=== PATIENT | female | born 1980 | race Hispanic/Latino ===

== ENCOUNTER 2018-06-18 09:04 | Day surgery (SDC) | payer OTHER ==
[2018-06-18] MEDS ORDERED: Succinylcholine Chloride 20 mg/ml Syr (5 ml) IV ONE (09:53)
[2018-06-18] MEDS ORDERED: Lidocaine 4% (Laryng-O-Jet) Kit MM ONE (09:53)
[2018-06-18] MEDS ORDERED: Rocuronium 10 mg/ml (5 ml) ONE (09:53)
[2018-06-18] MEDS ORDERED: Propofol 10 mg/ml Inj (20 ML) ONE (09:53)
[2018-06-18] MEDS ORDERED: Dexamethasone 4 mg/1 ml ONE (09:56)
[2018-06-18] MEDS ORDERED: Phenylephrine 10 mg/ml Inj ONE (09:59)
[2018-06-18] MEDS ORDERED: Lactated Ringer's 1,000 ML IV ONE ×5 (10:10→15:30)
[2018-06-18] MEDS ORDERED: Chlorhexidine Gluconate 2OZ GEL TP ONE (10:16)
[2018-06-18] MEDS ORDERED: Silver Nitrate Topical - Stick ONE (10:16)
[2018-06-18 10:25] LABS: BASO # 0.1 K/uL (0.0-0.2); EOS # 0.3 K/uL (0.0-0.7); HEMOGLOBIN 14.3 g/dL (12.0-16.0); LYMPH # 2.5 K/uL (1.0-4.3); LYMPH % 39.8 % (20.0-40.0); MEAN CELL VOLUME 94.1 fl (81.0-99.0); MEAN CORPUSCULAR HEMOGLOBIN 32.2 pg (27.0-31.0); MEAN CORPUSCULAR HGB CONC 34.3 g/dL (33.0-37.0); MEAN PLATELET VOLUME 8.8 fl (7.2-11.7); MONO # 0.4 K/uL (0.0-0.8); MONO % 6.8 % (0.0-10.0); NEUT # 3.1 K/uL (1.8-7.0); NEUT % 48.4 % (50.0-75.0); RBC 4.43 Mil/uL (3.80-5.20); RED CELL DISTRIBUTION WIDTH 12.6 % (11.5-14.5); WHITE BLOOD COUNT 6.4 K/uL (4.8-10.8)
[2018-06-18] MEDS ORDERED: Midazolam 2 MG/2 ML VIAL ONE (12:06)
[2018-06-18] MEDS: Bupivacaine 0.5% Inj(30mL) ONE ×2 (12:29→12:45)
[2018-06-18] MEDS ORDERED: Neostigmine 1:1000 (1 mg/ml) Inj ONE (13:23)
[2018-06-18] MEDS ORDERED: Lactated Ringer's 500 ML IV ONE (14:09)
[2018-06-18] MEDS ORDERED: Lactated Ringer's 1,000 ML IV SCH (14:15)
[2018-06-18] MEDS: HYDROmorphone 0.5 mg/0.5 ml ISec IVP PRN ×2 (14:40→14:55)
[2018-06-18] MEDS ORDERED: Oxycodone/Acetaminophen 5/325 mg Tab PO PRN (15:25)
[2018-06-18 17:17] VITALS: RESP 18
[2018-06-18 17:53] VITALS: O2SAT 98
[2018-06-18 18:57] VITALS: BP 116/71; PULSE 98; TEMP 97.7
--- NOTE | 2018-06-19 07:12 | OP ---
PROCEDURE DATE: 06/18/2018 SURGEON: Mason Kidd MD FINANCIAL COACH: Leonel Landeros MD ANESTHESIOLOGIST: Fahad Clark MD TYPE OF ANESTHESIA: General endotracheal. PREOPERATIVE DIAGNOSES: 1. Incapacitating pelvic pain. 2. Incapacitating abdominal pain. 3. Abnormal uterine bleeding. 4. History of pelvic endometriosis. 5. History of previously failed medical and surgical therapy. 6. Gastrointestinal and genitourinary symptoms. 7. Rule out interstitial cystitis. POSTOPERATIVE DIAGNOSES: 1. Incapacitating pelvic pain. 2. Incapacitating abdominal pain. 3. Abnormal uterine bleeding. 4. History of pelvic endometriosis. 5. History of previously failed medical and surgical therapy. 6. History of severe endometriosis and pelvic adhesions. 7. Gastrointestinal and genitourinary symptoms. PROCEDURES PERFORMED: 1. Exam under anesthesia. 2. Video assisted hysteroscopy. 3. Cystoscopy. 4. Bilateral ureteral catheterization and injection of IC-Green dye. 5. Robotic da Ghada operative laparoscopy. 6. Treatment of endometriosis. 7. Excision of endometriosis. 8. Bilateral ureterolysis. COMPLICATIONS: None. SAMPLES SENT: multiple sent to patholoigy INDICATION FOR THE PROCEDURE AND CONSENT: The patient had a long history of pelvic pain, dysmenorrhea, dyspareunia, abdominal pain, and bladder pain. The patient had been thoroughly evaluated and counseled regarding the pros and cons of the procedure, the reasonable alternatives, and possible complications. She understood and accepted the risks involved. Literature was provided to the patient. The patient was understanding and given her history and per surgical exam, she was at high risk in an average patient. She accepted all the risks involved, and all the questions had been answered to her satisfaction. FINDINGS OF SURGERY: Genitalia: Normal external genitalia, cervix without lesion and polyps. Hysteroscopy: Hysteroscopy shows a clear uterine cavity with no polyps or masses noticed. Cystoscopy: The cystoscopy was performed to rule out endometriosis and also any interstitial cystitis and also injury. The bladder was normal with no evidence of stone, trigonitis, or cystitis. A positive jet flow was identified in both ureters. Laparoscopy: The upper abdomen appeared to be normal. Gallbladder was normal. Liver edges appeared to be normal. Ascending colon and transverse were normal. There was evidence of adhesions, fibrosis, and endometriosis of the rectovaginal and pelvic sidewalls. T Both fallopian tubes appeared to be patent, DESCRIPTION OF THE PROCEDURE: Initiation of the case: After adequate anesthesia was obtained, the patient was placed in the dorsal lithotomy position, and with extreme care, placement of the patient with hyperextension and hyperflexing of the hips. At this point, the patient was prepped and draped. The surgeon was gowned and gloved. A timeout was taken according to the hospital procedure and the procedure was started. At this point, we performed cystoscopy, bilateral ureteral catheterization. A cystoscope was inserted into the bladder under direct visualization and the bladder was visualized. The bladder was free of lesions and tumors. There was no evidence of interstitial cystitis, and there was only mild amount of trigonitis. At this point, both ureters were identified and appeared to be in their normal anatomical position. At this point, utilizing an open 5-Turkish open-ended catheter, the left ureter was catheterized all the way to the distal ureter, and 5 mL of IC-Green was injected into this ureter. Similarly, the contralateral ureter was catheterized all the way to the distal ureter, and 5 mL of IC-Green was injected into the distal ureter. At this point, the stents were removed, and the cystoscope was removed, and the 16-Turkish Rodriguez was inserted into the bladder. At this point, we proceeded with a hysteroscopy. A speculum was placed into vagina, and the anterior lip of the cervix was grasped. The cervix was dilated, and a hysteroscope was inserted into the cavity. The cavity appeared to be of normal size with no evidence of polyps, cysts, adenomyosis, or fibroids. At this point, we proceeded with placement of a trocar and docking of the da Ghada Xi robot. The surgeon was re-gowned and gloved, and open laparoscopy was performed by making incision in the umbilicus and the fascia was incised. The peritoneum was entered in a blunt fashion, and the cannula was inserted under direct visualization. The abdomen was insufflated, and under direct visualization, three additional ports were inserted in the left upper quadrant, left mid quadrant, and right upper quadrant. At this point, the da Ghada Xi robot was brought into the field and docked, and the instruments were inserted under direct visualization. All this with extreme care not to injure the bowel or another area. As per dictation, the upper abdomen appeared to be normal with no evidence of any lesions. At this point, we proceeded with a left ureterolysis. The ureter appeared to be dilated and was clearly identified utilizing IC-Green fluorescent technology. Anesthesia was made in the peritoneum at the top of the pelvic brim, and the incision was then carried down all the way opening the peritoneum all the way down from the pelvic brim, all the way down to the ovarian fossa, extending the incision below the ovary. It was a progressive dissection where the ureter was progressively lateralized and peritoneum was medialized, thus freeing the ureter all the way down to the cross of the uterine vessels. After this was done, the ureter was freed and lateralized, and a larger peritoneum which had been opened, was excised, and sent to pathology. At this point, with the aid of very slow process, I was able to elevate the ovary and proceed with ovariolysis. . At this point, we proceeded with a right ureterolysis. The ureter was identified again utilizing fluorescent technology on the right hand side and retroperitoneal space was entered, and a full dissection was performed,entering the retroperitoneal space and dissecting the ureter, removing the ureter laterally and the peritoneum medially. A full dissection was performed all the way down to the ovarian fossa and the crossing of the uterine arteries. An area of peritoneum containing endometriosis was dissected and sent to Pathology. At this point, we proceeded with treatment of endometriosis and excision of endometriosis. On the left hand side, fibrosis, especially in the left ovarian fossa was excised. In a very progressive step by step fashion, we dissected off fibrosis containing endometriosis and freed up the whole area. The ureters which had been lateralized. Areas of fibrosis and endometriosis were also identified in the posterior cul-de-sac and in the rectovaginal space which was also affected with endometriosis and fibrosis. At this point, it was checked for hemostasis and appeared to be excellent. Both fallopian tubes were in good condition and patent. At this point we proceeded with destruction of inflammatory areas utilizing the j-plasma energy device. At this point the console was handed over to Dr. Landeros from General surgery who proceeded with umbilical hernia repair with strattice mesh procedure. He will dictate that separately. After he was done we checked for hemostasis and organ integrity and all was normal. At this point, the da Ghada Xi robot was removed. The abdomen was desufflated, and the incisions were closed in layers with 0 PDS for the fascia and 4-0 Monocryl for the skin. At the end of the procedure, all tips and instrument counts were correct. The patient tolerated the procedure well and was taken to the recovery room in excellent condition. Bernabe CARNEY, Mason COREAS
--- NOTE | 2018-06-27 11:16 | PCM.OP ---
Operative Report - Operative Report Date of Surgery/Procedure: 06/18/18 Time of Surgery/Procedure: 10:00 Surgeon: Dr. Leonel Landeros Ginseng Farmer: Dr. Mason Kidd Anesthesia/Sedation: General/Dr. Clark Pre-Operative Diagnosis: Incisional hernia Post-Operative Diagnosis: Same Indication for Surgery: Incisional hernia Operative Findings: Incisional hernia Procedure/Operation Description: Brief history: This is a 37-year-old man who was already brought to the operating room Dr. Mason Kidd after discovering that she had an incisional hernia from her previous surgery. I was consulted intraoperatively for assessment prior to initiating the robotic procedure. Description of the procedure: The patient had been brought to the operating Dr. Mason Kidd and prior to initiating the incision he recommended intraoperative consultation. After general intake intubation was achieved a 15 blade was then used to make an incision into the umbilical area at the level of the incisional hernia. Once the peritoneum was entered the operation was then turned over to Dr. Kidd (separate dictation). At this time a piece of 6 x 10 cm Stratus mesh was introduced into the field and using multiple interrupted 0 PDS sutures the mesh was inserted into the abdominal cavity in an underlay fashion. Once this was completed the fascia was closed with 3-0 Vicryl suture. The skin was then closed with continuous 4-0 Monocryl suture. A clean dressing was applied. Hemostasis was adequate. All counts are correct. The patient was awakened extubated and brought to recovery in stable condition. Estimated Blood Loss: 5 cc Complications: none Discharge & Condition: stable
== END 2018-06-18 20:00 | disposition home or self-care (01) ==
LOC: H.OPSURG 09:04
PROVIDERS: ATTEND Obstetrics & Gynecology Reproductive Endocrinology
DX: N80.0 Endometriosis of uterus (principal); R10.2 Pelvic and perineal pain; N73.6 Female pelvic peritoneal adhesions (postinfective); N80.1 Endometriosis of ovary; N80.3 Endometriosis of pelvic peritoneum; N80.5 Endometriosis of intestine; N93.9 Abnormal uterine and vaginal bleeding, unspecified; N94.6 Dysmenorrhea, unspecified; K43.2 Incisional hernia without obstruction or gangrene
CPT/HCPCS: 36415; 49654; 58563; 58662; 85025; 86850; 86900; 88305; C1729; J0131; J0690; J1100; J1170; J1885; J2001; J2250; J2370; J2405; J2704; J2710; J2765; J3010; J7030; J7120; Q4130